=== PATIENT | female | born 1980 | race Caucasian/White ===

== ENCOUNTER 2020-05-07 00:49 | Outpatient (CLI) | payer MEDICARE, SELFPAY ==
[2020-05-07 16:30] LABS: SARS-CoV-2 RNA PCR Negative
== END 2020-05-07 00:50 | disposition home or self-care (01) ==
LOC: ANHCOVIDDT 00:50
PROVIDERS: PCP Nurse Practitioner Psychiatric/Mental Health; Visit Provider Obstetrics & Gynecology
DX: Z01.812 Encounter for preprocedural laboratory examination (principal); Z20.828 Contact with and (suspected) exposure to other viral communicable diseases
CPT/HCPCS: 87635; C9803; U0003

== ENCOUNTER 2020-05-09 00:37 | Day surgery (SDC) | payer MEDICARE, SELFPAY ==
[2020-04-25 08:59] VITALS: BMI 21.9
[2020-05-09] VITALS (9 sets, daily range): BP systolic 109–123; BP diastolic 71–82; PULSE 57–74; RESP 12–18; TEMP 36.3–37; O2SAT 97–100
[2020-05-09] MEDS: LACTATED RINGERS 1,000 ML 30 ML IV CONT ×2 (06:30→08:24)
[2020-05-09] MEDS: ACETAMINOPHEN 500 MG TABLET 1000 MG PO (06:36)
[2020-05-09] MEDS: KETOROLAC 15 MG/ML VIAL (*BKC) IV PUSH (06:37)
--- NOTE | 2020-05-09 07:04 | WPDANESEPPF ---
Anes - Initial Pre Proc Eval Procedure: Operation Date: 05/09/20 07:30 Proposed Procedures p Laparoscopic Bilateral Tubal Cautery - Buck Santiago MD s Hysteroscopy, Myrna Endometrial Ablation - Buck Santiago MD Date/Time: 05/09/20 07:04 Surgeon: Buck Santiago MD Pre Op Diagnosis: Menorrhagia/ Desires Serilization Patient Data Age: 40 Gender: F Height: 5 ft 4 in Weight: 61.2 kg Last Vital Signs Temp 98.1 F 05/09/20 06:27 Pulse 63 05/09/20 06:27 Resp 16 05/09/20 06:27 BP 109/80 05/09/20 06:27 Pulse Ox 98 05/09/20 06:27 Allergies Allergy/AdvReac Type Severity Reaction Status Date / Time lamotrigine [From Lamictal] Allergy Severe Hives Verified 05/09/20 06:24 Home Medications Medication Instructions Recorded Confirmed Type carbamazepine 400 mg PO BID 04/25/20 05/09/20 History hydroxychloroquine 200 mg PO BID 04/25/20 05/09/20 History paroxetine HCl 60 mg PO DAILY 04/25/20 05/09/20 History prednisone 10 mg PO DAILY 04/25/20 05/09/20 History tofacitinib [Xeljanz XR] 11 mg PO DAILY 04/25/20 05/09/20 History Patient hx anesthesia problems: none Family hx anesthesia problems: none PMFSH Past Medical History Medical History (Updated 05/09/20 @ 07:06 by Rex Clayton MD) Rheumatoid arthritis Seizure none for 5 years; on medications Systemic lupus erythematosus Family History Family History (Updated 03/09/14 @ 07:13 by DOCTOR UNKNOWN) Sibling Family history of migraine headaches Mother Hypertension Grandparent Cerebrovascular accident Father Family history of hearing loss Hypertension Family history of coronary artery disease Social History Social History Smoking status: Never smoker Alcohol intake: never Spiritual care concerns: No Anes - Eval Final PreProcedure Day of Procedure 05/09/20 07:04 Patient weight: normal Heart: regular rate and rhythm Lungs: clear to auscultation Airway: Mallampati scale class II Neurological: alert and oriented Last oral intake: >/= 8 hours ASA classification: III Emergent: no Anesthetic plan: proceed Anesthesia type and monitoring: general ETT and standard monitoring Informed Consent: The patient's anesthetic plan and its attendant risks and benefits were discussed with the patient/family/POA. Questions were solicited and answers provided to the satisfaction of the patient/family/POA.
--- NOTE | 2020-05-09 07:16 | WPDHPUPDATE1 ---
History and Physical Update Update Date/Time: 05/09/20 07:16 History and Physical has been reviewed, including an updated exam of the patient. There are NO changes in the patient's condition. Risks, benefits, and alternatives have been discussed and questions answered. Patient agrees to proceed with procedure.
--- NOTE | 2020-05-09 08:17 | SUR.OPER ---
100ml ns in, 100ml ns out. aware
--- NOTE | 2020-05-09 08:46 | P.OP_ITS ---
Procedure Note - Detailed Date of procedure: 05/09/20 Pre-op diagnosis: Menorrhagia/ Desires Serilization Post-op diagnosis: same Procedure performed: Laparoscopic bilateral tubal ligation, Endometrial Ablation Description of procedure: Patient was taken the operating room. She has prepped draped in the dorsal lithotomy position after induction of general anesthesia. A 5 mm abdominal incision was made in left upper quadrant of the abdomen with scalpel. A 5 mm trocars inserted the intra-abdominal cavity under direct visualization of the scope. Pneumoperitoneum was achieved. A 5 mm periumbilical incision was made using a scalpel on the abdominal scan. A 5 mm trocar was inserted the intra-abdominal cavity under visualization of the scope. The fallopian tube was grasped with the bipolar cautery in the ampullary region. It was completely desiccated in a 1.5 cm area of the fallopian tube. This was performed in identical fashion on the contralateral side. The instruments were withdrawn. The pneumoperitoneum was reduced. The trocars were removed. The skin was closed with subcuticular 4 Monocryl. This incisions were covered with Dermabond. Our attention was then turned to the endometrial ablation portion of the proc edure. A speculum was placed in the vagina. The cervix was grasped with a tenaculum. The cervix was dilated to approximately 8 mm with Montes dilators. The hysteroscope was inserted. And the below findings were noted. Measurements of the cervix were taken using the uterine sound and the hysteroscope. The intrauterine cavity measurements were entered into the hand piece of the device. The device was inserted the intrauterine cavity. The array was expanded. The balloon cuff was inflated. The uterus was airtight. The energy and safety cycles within initiated. They were completed under 3 minutes. The balloon cuff was collapsed, the array was collapsed, and the device was removed the uterine cavity. the hysteroscope was reinserted and the cavity was well desiccated, it was clearly observed. Hysteroscope was withdrawn. The tenaculum was removed. The speculum was removed. The patient tolerated the procedure well. She was taken to recover room in stable condition. Anesthesia: GETA Surgeon: Buck Santiago MD Estimated blood loss (mL): 10 Drains: No Packing: No Pathology: none sent Complications: No immediate complications Condition: stable Disposition: PACU Findings: Normal female pelvic anatomy.
[2020-05-09] MEDS: fentaNYL CITRATE INJ (*CRX) 100 MCG/2 ML VIAL 25 MCG IV PUSH ×2 (08:49→08:56)
[2020-05-09] MEDS: oxyCODONE HCL (*CRX) 5 MG TAB IR PO (09:55)
== END 2020-05-09 10:20 | disposition home or self-care (01) ==
PROVIDERS: PCP Nurse Practitioner Psychiatric/Mental Health; Visit Provider Obstetrics & Gynecology
PROC: (CPT 58671; principal; 2020-05-09 07:30)
PROC: 0U5B8ZZ Destruction of Endometrium, Via Natural or Artificial Opening Endoscopic (ICD-10-PCS; CPT 58563; 2020-05-09 07:30)
DX: N92.0 Excessive and frequent menstruation with regular cycle (principal); Z30.2 Encounter for sterilization; M06.9 Rheumatoid arthritis, unspecified; G40.909 Epilepsy, unspecified, not intractable, without status epilepticus; M32.9 Systemic lupus erythematosus, unspecified
CPT/HCPCS: 58563; 58670; A9270; J1100; J1200; J1885; J2250; J2405; J2704; J3010; J7030; J7120